=== PATIENT | female | born 1945 | race Caucasian/White ===

== ENCOUNTER → 2017-05-15 | Outpatient (CLI) | payer MEDICARE ==
[~2017-05-15] MED LIST: ASPI1TAB PO; ATOR80TA59 PO; CALCCHW8 PO; FOSA70TA PO; LISI20TA3 PO; STOO100C PO; SYNT50TA PO; VITA100067 PO
--- NOTE | 2017-05-16 09:56 | REP ---
THORACIC SPINE THREE VIEWS: 05/15/2017. Clinical history: Thoracic spine pain for 3 weeks, lower thoracic region. Comparison: Chest x-ray 12/04/2006. Findings: The three views show very gentle levoconvex curve mid-thoracic spine which may be positional, but is also seen on the previous study. There are marginal osteophytes at multiple levels. The pedicles, spinous processes, posterior rib articulations and medial clavicles were all grossly intact. Paraspinal lines are not displaced. The aorta is mildly tortuous but unchanged from 10 years ago. Cervicothoracic junction aligns normally. There is cervical spondylosis in the mid and lower cervical spine. There are marginal osteophytes which are largest in the lower thoracic spine and a few narrowed disc spaces mid and lower thoracic region but no compression deformity or destructive lesion. Impression: 1. Degenerative disc changes without compression deformity or destructive lesion. No scoliosis or kyphosis of significance. Signed by Sander Worrell MD 05/16/2017 05:54 P
== END ==
LOC: M WUC 15:08
PROVIDERS: ATTEND Physician Assistant
DX: M51.36 Other intervertebral disc degeneration, lumbar region (principal)

== ENCOUNTER 2017-07-19 08:10 | Outpatient (CLI) | payer MEDICARE ==
[~2017-07-19] VITALS: Ht 162.6 cm; Wt 81.6 kg
[2017-07-19] MEDS ORDERED: NS 1,000 ML IV ONE (08:15)
[2017-07-19] MEDS ORDERED: PROPOFOL 200 MG/20 ML VIAL As Ordered ONE (08:41)
[2017-07-19] MEDS ORDERED: LIDOCAINE 2% INJ 100 MG/5 ML SDV (FOR ANES.) As Ordered ONE (09:24)
--- NOTE | 2017-07-19 09:48 | ROOR ---
Patient Name: Dyan Santos Procedure Date: 07/19/2017 9:19 AM Date of : 1945 Age: 72 Room: [facility] Gender: Female Note Status: Finalized Procedure: Total Colonoscopy to Cecum + Cold Snare Polypectomy + Hemoclip Indications: Screening for colorectal malignant neoplasm, Last colonoscopy: 2006 Providers: Dean Arias MD Referring MD: Dunia AKBAR MD Requesting Provider: Medicines: Monitored Anesthesia Care Complications: No immediate complications. Procedure: Pre-Anesthesia Assessment: - The heart rate, respiratory rate, oxygen saturations, blood pressure, adequacy of pulmonary ventilation, and response to care were monitored throughout the procedure. The Colonoscope was introduced through the anus and advanced to the cecum, identified by appendiceal orifice and ileocecal valve. The colonoscopy was performed without difficulty. The patient tolerated the procedure well. The quality of the bowel preparation was excellent. Findings: The perianal and digital rectal examinations were normal. Non-bleeding internal hemorrhoids were found during retroflexion. The hemorrhoids were small and Grade I (internal hemorrhoids that do not prolapse). Scattered small-mouthed diverticula were found in the recto-sigmoid colon, sigmoid colon and descending colon. Multiple sessile polyps were found in the mid ascending colon. The polyps were small in size. These polyps were removed with a jumbo cold forceps. Resection and retrieval were complete. A small polyp was found at 20 cm proximal to the anus. The polyp was sessile. The polyp was removed with a cold snare. Resection and retrieval were complete. To prevent bleeding after the polypectomy, one hemostatic clip was successfully placed (MR conditional). There was no bleeding at the end of the procedure. The exam was otherwise without abnormality on direct and retroflexion views. Impression: - Non-bleeding internal hemorrhoids. - Diverticulosis in the recto-sigmoid colon, in the sigmoid colon and in the descending colon. - Multiple small polyps in the mid ascending colon, removed with a jumbo cold forceps. Resected and retrieved. - One small polyp at 20 cm proximal to the anus, removed with a cold snare. Resected and retrieved. Clip (MR conditional) was placed. - The examination was otherwise normal on direct and retroflexion views. - The exam was otherwise normal to the cecum. Recommendation: - Patient has a contact number available for emergencies. The signs and symptoms of potential delayed complications were discussed with the patient. Return to normal activities tomorrow. Written discharge instructions were provided to the patient. - High fiber diet. - Discharge patient to home. - Continue present medications. - Await pathology results. - Telephone GI clinic for pathology results in 1 week. - Repeat colonoscopy PRN for surveillance based on pathology results. - The findings and recommendations were discussed with the patient's family. Dean Arias MD Dean Arias MD 07/19/2017 9:48:10 AM This report has been signed electronically. Number of Addenda: 0 Note Initiated On: 07/19/2017 9:19 AM Estimated Blood Loss: Estimated blood loss: none.
[2017-07-19 10:15] VITALS: BP 140/78
== END 2017-07-19 10:17 | disposition home or self-care (01) ==
LOC: M OPP 08:10
PROVIDERS: ATTEND Internal Medicine Gastroenterology
DX: Z12.11 Encounter for screening for malignant neoplasm of colon (principal); D12.2 Benign neoplasm of ascending colon; K63.5 Polyp of colon; K64.0 First degree hemorrhoids; K57.30 Diverticulosis of large intestine without perforation or abscess without bleeding; I25.10 Atherosclerotic heart disease of native coronary artery without angina pectoris; I10 Essential (primary) hypertension; E78.5 Hyperlipidemia, unspecified; Z95.5 Presence of coronary angioplasty implant and graft; E11.9 Type 2 diabetes mellitus without complications; E03.9 Hypothyroidism, unspecified; M81.0 Age-related osteoporosis without current pathological fracture; Z78.0 Asymptomatic menopausal state; Z87.891 Personal history of nicotine dependence; Z88.0 Allergy status to penicillin; Z88.2 Allergy status to sulfonamides; Z79.82 Long term (current) use of aspirin; Z79.899 Other long term (current) drug therapy; Z80.3 Family history of malignant neoplasm of breast; Z80.42 Family history of malignant neoplasm of prostate; Z80.41 Family history of malignant neoplasm of ovary; Z80.1 Family history of malignant neoplasm of trachea, bronchus and lung

== ENCOUNTER → 2017-11-05 | Outpatient (REF) | payer MEDICARE ==
[2017-11-05 13:29] LABS: RBC, URINE 0-1 /hpf (0-3); WBC, URINE 30-40 /hpf (0-3)
[2017-11-05 13:30] LABS: BACTERIA, URINE SMALL AMOUNT; HYALINE CAST, URINE NONE SEEN /lpf (0-1); RENAL EPITHELIAL CELLS, URINE SMALL AMOUNT /hpf; SQUAMOUS EPITHELIAL CELL URINE SMALL AMOUNT /hpf (SMALL AMT)
[2017-11-05 13:34] LABS: MICROSCOPIC EXAM PERFORMED; OVAL FAT BODIES, URINE SMALL AMOUNT
== END ==
LOC: M LAB REF 12:00
DX: N39.0 Urinary tract infection, site not specified (principal)
CPT/HCPCS: 81015

== ENCOUNTER → 2017-11-25 | Outpatient (REF) | payer MEDICARE | LOC: M LAB REF 16:35 | DX: R30.0 Dysuria (principal) | CPT/HCPCS: 87186 ==

== ENCOUNTER → 2018-05-17 | Outpatient (CLI) | payer MEDICARE | LOC: M WUC 08:50 | DX: M79.672 Pain in left foot (principal); N39.0 Urinary tract infection, site not specified | CPT/HCPCS: 87186 ==

== ENCOUNTER → 2018-08-08 | Outpatient (REF) | payer MEDICARE | LOC: M LAB REF 17:04 | DX: N39.0 Urinary tract infection, site not specified (principal) | CPT/HCPCS: 87088; 87186 ==

== ENCOUNTER 2019-03-26 21:48 | Emergency (ER) | payer MEDICARE ==
[~2019-03-26] VITALS: Ht 160 cm; Wt 81.8 kg
[~2019-03-26 21:48] MED LIST changes: -ASPI1TAB PO; +ASPI81TA26 PO
[2019-03-26 22:25] LABS: BASO % 0.5 % (0.0-1.0); EOS # 0.2 10^3/uL (0.0-0.50); EOS % 2.6 % (0.0-3.0); HEMATOCRIT 37.9 % (36.0-47.0); HEMOGLOBIN 12.7 g/dl (12.0-15.5); LYMPH # 2.6 10^3/uL (1.5-4.5); LYMPH % 29.9 % (24.0-44.0); MEAN CORPUSCULAR HEMOGLOBIN 31.5 pg (27.0-33.0); MEAN CORPUSCULAR HGB CONC 33.5 g/dl (32.0-36.5); MONO # 0.8 10^3/uL (0.0-0.8); MONO % 9.6 % (0.0-5.0); NEUTROPHILS % 56.9 % (36.0-66.0); PLATELET COUNT, AUTOMATED 272 10^3/uL (150-450); RED BLOOD COUNT 4.03 10^6/uL (4.00-5.40); WHITE BLOOD COUNT 8.7 10^3/uL (4.0-10.0)
[2019-03-26] MEDS ORDERED: GI COCKTAIL 50ML BTL(HYOSCYAMINE/MAALOX/LIDOCAINE VISCOUS)(1:3:1) PO ONE (22:30)
[2019-03-26] MEDS ORDERED: ASPIRIN 81 MG CHEW TABLET PO ONE (22:30)
[2019-03-26 22:59] LABS: CALCIUM LEVEL 9.1 MG/DL (8.8-10.2); CK-MB VALUE MASS 1.4 NG/ML (<3.6); CREATININE FOR GFR 1.11 MG/DL (0.55-1.30); FREE T4 1.12 NG/DL (0.76-1.46); GLOMERULAR FILTRATION RATE 51.3 (>39); MB/CK RELATIVE INDEX 1.43 (< OR =4); POTASSIUM SERUM 3.6 MEQ/L (3.5-5.1); THYROID STIMULATING HORMONE 4.72 uIU/ML (0.358-3.740); TROPONIN I 0.05 NG/ML (< 0.10)
[2019-03-27 01:43] VITALS: BP 142/70
--- NOTE | 2019-03-27 05:53 | ECGEPIP ---
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
--- NOTE | 2019-03-27 07:36 | REP ---
The portable chest, 10:31 p.m., single AP upright view: Comparison is 12/04/2006. The lung hugo are clear. The cardiac size is normal. The kellen, mediastinum, and skeletal structures are unremarkable. Impression: Negative portable chest. There is no interval change. Electronically Signed by Anuj Stahl MD 03/27/2019 07:28 A
== END 2019-03-27 02:04 | disposition home or self-care (01) ==
LOC: M ED 21:48
DX: K21.9 Gastro-esophageal reflux disease without esophagitis (principal); I25.10 Atherosclerotic heart disease of native coronary artery without angina pectoris; I10 Essential (primary) hypertension; Z87.891 Personal history of nicotine dependence; Z82.49 Family history of ischemic heart disease and other diseases of the circulatory system; Z79.82 Long term (current) use of aspirin; Z79.899 Other long term (current) drug therapy; Z88.0 Allergy status to penicillin; Z88.2 Allergy status to sulfonamides

== ENCOUNTER → 2020-03-20 | Outpatient (CLI) | payer MEDICARE ==
[~2020-03-20] MED LIST changes: +LISI20TA20 PO; -LISI20TA3 PO; +MM S100C PO; -STOO100C PO
== END ==
LOC: M LABSMTC 12:26
PROVIDERS: ATTEND Pediatrics
DX: Z03.818 Encounter for observation for suspected exposure to other biological agents ruled out (principal); Z11.59 Encounter for screening for other viral diseases

== ENCOUNTER → 2020-06-28 | Outpatient (REF) | payer MEDICARE | LOC: M LAB REF 12:20 | PROVIDERS: ATTEND Internal Medicine | DX: R30.0 Dysuria (principal) ==

== ENCOUNTER → 2020-08-29 | Outpatient (CLI) | payer SELFPAY | LOC: M LABSMTC 11:43 | PROVIDERS: ATTEND Pediatrics | DX: Z20.828 Contact with and (suspected) exposure to other viral communicable diseases (principal) ==

== ENCOUNTER → 2020-09-10 | Outpatient (REF) | payer MEDICARE | LOC: M LAB REF 09:07 | PROVIDERS: ATTEND Internal Medicine | DX: N39.0 Urinary tract infection, site not specified (principal) ==

== ENCOUNTER → 2020-11-18 | Outpatient (REF) | payer MEDICARE | LOC: M LAB REF 16:32 | PROVIDERS: ATTEND Internal Medicine | DX: Z91.19 Patient's noncompliance with other medical treatment and regimen (principal) ==

== ENCOUNTER → 2021-01-13 | Outpatient (REF) | payer MEDICARE | LOC: M LAB REF 16:34 | PROVIDERS: ATTEND Internal Medicine | DX: N39.0 Urinary tract infection, site not specified (principal) ==

== ENCOUNTER 2021-10-07 04:27 | Inpatient (IN) | payer MEDICARE ==
[~2021-10-07] VITALS: Ht 165.1 cm; Wt 82.9 kg
[2021-10-07 05:37] LABS: BASO % 0.2 % (0.0-1.0); EOS % 0.1 % (0.0-3.0); HEMATOCRIT 40.8 % (36.0-47.0); HEMOGLOBIN 13.5 g/dl (12.0-15.5); LYMPH % 7.7 % (24.0-44.0); MEAN CORPUSCULAR HEMOGLOBIN 30.4 pg (27.0-33.0); MEAN CORPUSCULAR HGB CONC 33.1 g/dl (32.0-36.5); MEAN CORPUSCULAR VOLUME 91.9 fl (80.0-96.0); MONO # 0.6 10^3/uL (0.0-0.8); MONO % 4.6 % (2.0-8.0); NEUTROPHILS # 11.2 10^3/uL (1.5-8.5); PLATELET COUNT, AUTOMATED 273 10^3/uL (150-450); RED BLOOD COUNT 4.44 10^6/uL (4.00-5.40); WHITE BLOOD COUNT 12.9 10^3/uL (4.0-10.0)
[2021-10-07] MEDS ORDERED: MORPHINE 2 MG/ML 1ML VIAL (J2270) IV PRN ×2 (05:40→08:55)
[2021-10-07] MEDS ORDERED: ONDANSETRON 4MG/2ML VIAL IV ONE (05:40)
[2021-10-07 06:02] LABS: INR 0.99; PROTHROMBIN TIME 13.5 SECONDS (12.7-14.5)
[2021-10-07 06:07] LABS: ALBUMIN 3.6 GM/DL (3.2-5.2); ALT/SGPT 31 U/L (12-78); BILIRUBIN,DIRECT 0.2 MG/DL (0.0-0.2); BILIRUBIN,TOTAL 0.5 MG/DL (0.2-1.0); BLOOD UREA NITROGEN 21 MG/DL (7-18); CALCIUM LEVEL 9.3 MG/DL (8.8-10.2); CARBON DIOXIDE LEVEL 26 MEQ/L (21-32); CHLORIDE LEVEL 104 MEQ/L (98-107); CREATININE FOR GFR 0.88 MG/DL (0.55-1.30); GLOMERULAR FILTRATION RATE > 60.0 (>39); GLUCOSE, FASTING 167 MG/DL (70-100); LIPASE 92 U/L (73-393); POTASSIUM SERUM 4.1 MEQ/L (3.5-5.1); SODIUM LEVEL 137 MEQ/L (136-145); TOTAL PROTEIN 6.6 GM/DL (6.4-8.2)
[2021-10-07] MEDS ORDERED: ISOVUE-370 76% 100ML VIAL As Ordered ONE (06:18)
[2021-10-07 07:06] LABS: RSV AMPLIFICATION NEGATIVE (NEGATIVE)
--- NOTE | 2021-10-07 07:30 | REPVR ---
PROCEDURE INFORMATION: Exam: CT Abdomen And Pelvis With Contrast Exam date and time: 10/07/2021 6:06 AM Age: 76 years old Clinical indication: Other: Diarrhea; Additional info: Generalized abd pain, diarrhea, hematachezia TECHNIQUE: Imaging protocol: Computed tomography of the abdomen and pelvis with contrast. Radiation optimization: All CT scans at this facility use at least one of these dose optimization techniques: automated exposure control; mA and/or kV adjustment per patient size (includes targeted exams where dose is matched to clinical indication); or iterative reconstruction. Contrast material: ISO; Contrast volume: 100 ml; Contrast route: INTRAVENOUS (IV); COMPARISON: CR PORTABLE CHEST X-RAY 03/26/2019 10:30 PM FINDINGS: Lungs: Bilateral dependent atelectasis. Heart: Atherosclerotic disease of the coronary arteries. Diaphragm: Small hiatal hernia. Liver: Normal. No mass. Gallbladder and bile ducts: Normal. No calcified stones. No ductal dilation. Pancreas: Normal. No ductal dilation. Spleen: Normal. No splenomegaly. Adrenal glands: Normal. No mass. Kidneys and ureters: Simple exophytic right renal cyst. Stomach and bowel: Marked inflammatory changes involving descending colon compatible with colitis. Scattered diverticulosis of the colon. No evidence of acute diverticulitis. Appendix: No evidence of appendicitis. Intraperitoneal space: Unremarkable. No free air. No significant fluid collection. Vasculature: Atherosclerotic disease of the thoracoabdominal aorta. Lymph nodes: Unremarkable. No enlarged lymph nodes. Urinary bladder: Unremarkable as visualized. Reproductive: Unremarkable as visualized. Bones/joints: Anterolisthesis of L4 on L5 secondary to bilateral L4 pars interarticularis defects. Severe stenosis of the spinal canal and neural foramina at this level. Multilevel degenerative disease. Mild levoscoliosis. Soft tissues: Unremarkable. IMPRESSION: Marked inflammatory changes involving descending colon compatible with colitis. COMMENTS: Consistent with the [employer]'s Incidental Findings Committee white paper (J Am Orlando Radiol 2018): Any incidental renal lesion less than 1 cm or classified as too small to characterize, or any incidental cystic renal lesion characterized as simple-appearing, is likely benign. No follow-up imaging is recommended for these lesions per consensus recommendations based on imaging criteria. Electronically signed by: Chester Robertson On 10/07/2021 07:29:37 AM
[2021-10-07] MEDS ORDERED: FOSA70TA PO (08:15)
[2021-10-07] MEDS ORDERED: ECOT81TA5 PO (08:19)
[2021-10-07] MEDS ORDERED: LISI40TA4 PO (08:19)
[2021-10-07] MEDS ORDERED: CHLO125TA PO (08:19)
[2021-10-07] MEDS ORDERED: LEVO50TA5 PO (08:19)
[2021-10-07] MEDS ORDERED: LORA10TA3 PO (08:20)
[2021-10-07] MEDS ORDERED: HOME MED LIST COMPLETE! XX SCH (08:20)
[2021-10-07] MEDS ORDERED: ONDANSETRON 4MG/2ML VIAL IV PRN (08:55)
[2021-10-07] MEDS: CIPROFLOXACIN 400 MG in IV 1 EA IV SCH ×2 (09:25→21:49)
[2021-10-07] MEDS: NS 1,000 ML IV SCH ×2 (09:25→17:09)
[2021-10-07] MEDS ORDERED: amLODIPine 5 MG TAB PO ONE (11:20)
[2021-10-07 11:34] VITALS: BP 186/86
[2021-10-07] MEDS: metroNIDAZOLE 500 MG in IV 1 EA IV SCH ×2 (11:35→17:09)
--- NOTE | 2021-10-07 11:35 | HPEPDOC ---
General Date of Admission Oct 07, 2021 at 08:53 Date of Service: Oct 07, 2021 Chief Complaint The patient is a 76-year-old female admitted with a reason for visit of Colitis. History of Present Illness 76-year-old female with CAD, hypertension, hyperlipidemia, hypothyroid diverticulosis, hemorrhoids presented to the hospital with the abdominal pain and bloody diarrhea. Patient reports that last evening she had severe crampy abdominal pain 10/10 in intensity in the periumbilical and lower abdomen associated with nausea followed by 2 very large loose bowel movements. The stools were initially solid then brown liquid. After this she had several more urges to have a bowel movement but only blood with clots came out. There was minimal stool in the subsequent bowel movements. She reports that she had another bout of diarrhea on October 04 when she had 4-5 [id number] large liquid bowel movements and then resolved. Patient tells me that she has noticed a change in her bowel habits in the last 3 to 4 months. Her usual bowel habits are more constipation but over the past 3 or 4 months she has noticed that she would have constipation for few days and then she would have a day of diarrhea when she would have for 5 loose bowel movements and then resolved by itself then she would go back to constipation for several days and again diarrhea. She reports that she had a colonoscopy 4 years back and was told everything was good. During my exam she complained of soreness across the lower abdomen and rated it about 4/10 in intensity. She did get morphine in the emergency room. CT scan in the emergency room showed Marked inflammatory changes involving descending colon compatible with colitis. Scattered diverticulosis of the colon. No evidence of acute diverticulitis. She was admitted for acute colitis and GIB. Home Medications Scheduled Alendronate Sodium (Fosamax) 70 Mg Tablet, 70 MG PO QWEEK, (Reported) takes sundays Aspirin (Ecotrin) 81 Mg Tablet.dr, 81 MG PO QHS, (Reported) Atorvastatin Calcium (Atorvastatin Calcium) 80 Mg Tab, 80 MG PO QHS, (Reported) Chlorthalidone (Chlorthalidone) 25 Mg Tablet, 12.5 MG PO DAILY, (Reported) Levothyroxine Sodium (Levothyroxine Sodium) 50 Mcg Tablet, 50 MCG PO QHS, (Reported) Lisinopril (Lisinopril) 40 Mg Tablet, 40 MG PO QHS, (Reported) Loratadine (Loratadine) 10 Mg Tablet, 10 MG PO DAILY, (Reported) Allergies Coded Allergies: amoxicillin (Verified Allergy, Mild, HIVES, 10/07/21) Sulfa (Sulfonamide Antibiotics) (Verified Allergy, Unknown, 10/07/21) Past Medical History Medical History CAD s/p 8 stents in 2006 Hypertension, Hyperlipidemia, Hypothyroid, Diverticulosis, Hemorrhoids Surgical History Surgery for tubal in 1970s Family History Significant Family History: Cancer (Brother had prostate cancer, 2 sisters had breast cancer, one sister had mesothelioma, 1 sister had ovarian cancer), Heart disease (Mother and siblings) Social History * Smoker: former Smoker Alcohol: rarely Drugs: denies A-FIB/CHADSVASC A-FIB History Current/History of A-Fib/PAF?: No Review of Systems Constitutional: Denies: Chills, Fever, Night Sweats Eyes: Denies: Pain, Vision change ENT: Denies: Head Aches, Ear Pain, Dysphagia Skin: Denies: Rash, Lesions, Breakdown Pulmonary: Denies: Dyspnea, Cough Cardiovascular: Denies: Chest Pain, Palpitations, Orthopnea, Paroxysmal Noc. Dyspnea, Lt Headedness Gastrointestinal: Reports: Nausea, Abdominal Pain, Diarrhea, Hematochezia Genitourinary: Denies: Dysuria, Frequency, Incontinence, Retention Hematologic: Denies: Bruising, Bleeding Excessively Musculoskeletal: Denies: Neck Pain, Joint Pain, Muscle Pain, Spasms Physical Examination General Exam: Positive: Alert, Cooperative, No Acute Distress Eye Exam: Positive: PERRLA, Conjunctiva & lids normal, EOMI; Negative: Sclera icteric ENT Exam: Positive: Atraumatic, Mucous membr. moist/pink, Pharynx Normal Neck Exam: Positive: Supple; Negative: JVD, thyromegaly Chest Exam: Positive: Clear to auscultation, Normal air movement Heart Exam: Positive: Rate Normal, Regular Rhythm, Normal S1, Normal S2; Negative: Murmurs, Rubs Abdomen Exam: Positive: BS Hyperactive, Soft, Tenderness (Across the right lower abdomen below the umbilicus and suprapubic region.); Negative: Hepatospenomegaly Extremity Exam: Negative: Clubbing, Cyanosis, Edema Skin Exam: Positive: Nl turgor and temperature; Negative: Breakdown, Lesion Neuro Exam: Positive: Normal Speech, Strength at 5/5 X4 ext, Normal Tone Psych Exam: Positive: Memory Intact, Oriented x 3 Vital Signs Vital Signs Date Time Temp Pulse Resp B/P (MAP) Pulse Ox O2 Delivery O2 Flow Rate FiO2 10/07/21 08:09 173/77 (109) 10/07/21 08:00 98.6 75 20 100 Room Air Laboratory Data Labs 24H Laboratory Tests 2 10/07/21 05:27: Immature Granulocyte % (Auto) 0.4, Neutrophils (%) (Auto) 87.0H, Lymphocytes (%) (Auto) 7.7L, Monocytes (%) (Auto) 4.6, Eosinophils (%) (Auto) 0.1, Basophils (%) (Auto) 0.2, Neutrophils # (Auto) 11.2H, Lymphocytes # (Auto) 1.0L, Monocytes # (Auto) 0.6, Eosinophils # (Auto) 0.0, Basophils # (Auto) 0.0, Nucleated Red Blood Cells % (auto) 0.0, Prothrombin Time 13.5, Prothromb Time International Ratio 0.99, Activated Partial Thromboplast Time 29.0, Anion Gap 7L, Glomerular Filtration Rate > 60.0, Lactic Acid Level 1.9, Calcium Level 9.3, Total Bilirubin 0.5, Direct Bilirubin 0.2, Aspartate Amino Transf (AST/SGOT) 22, Alanine Aminotransferase (ALT/SGPT) 31, Alkaline Phosphatase 59, Total Protein 6.6, Albumin 3.6, Albumin/Globulin Ratio 1.2, Lipase 92 10/07/21 06:08: Coronavirus (COVID-19)(PCR) NEGATIVE, Influenza Type A (RT-PCR) NEGATIVE, Influenza Type B (RT-PCR) NEGATIVE, Respiratory Syncytial Virus (PCR) NEGATIVE CBC/BMP Laboratory Tests 10/07/21 05:27 Assessment/Plan 76-year-old female with CAD, hypertension, hyperlipidemia,hypothyroid diverticulosis, hemorrhoid presented to the hospital with the severe cramp abdominal pain and bloody diarrhea. She also reported change in bowel habits in the last 3 months with alternate episodes of constipation and diarrhea but never with blood before. She did notice blood in toilet paper after wiping before from her hemorroids but never pure blood and clots in the toilet bowl. CT scan in the emergency room showed Marked inflammatory changes involving descending colon compatible with colitis. Scattered diverticulosis of the colon. No evidence of acute diverticulitis. She was admitted for acute colitis and GIB. Acute colitis Infective vs inflammatory We will give IV fluid, ciprofloxacin and Flagyl. If continues to have diarrhea will send for GI panel Rule out inflammatory bowel disease. Will send IBD panel. Liquid diet for now GIB Bright red in color. likely lower GIB possibly due to Colitis + diverticular bleed. Patient has diverticulosis and hemorrhoids seen in colonoscopy [address] scan today along with colitis. will check hh q 6 hours. will give pantoprazole. Hypertension Patient reports that she could not take her blood pressure medications last night because of nausea so her blood pressure is uncontrolled this morning We will give 1 dose of amlodipine and resume her home meds except hydrochlorothiazide CAD status post stents Continue aspirin, statin Hypothyroid Continue Synthroid Hyperlipidemia Continue statin Lumbar spinal stenosis severe at the level of L4-L5 with bilateral foraminal stenosis This is seen in the CT scan. Small hiatal hernia Seen in the CT scan Plan / VTE VTE Prophylaxis Ordered?: Yes Nathaly Cho MD Oct 07, 2021 11:35
[2021-10-07 13:47] VITALS: BP 160/72
[2021-10-07] MEDS ORDERED: KETOROLAC 30 MG/ML 1ML VIAL IV PRN (16:50)
[2021-10-07] MEDS ORDERED: ACETAMINOPHEN TAB 650MG DOSE (2X325MG) PO PRN (16:50)
[2021-10-07 17:34] LABS: HEMOGLOBIN 13.2 g/dl (12.0-15.5)
[2021-10-07] MEDS: lisinopriL 40 MG TAB PO SCH (21:00)
[2021-10-07] MEDS: PANTOPRAZOLE 40MG VIAL (C9113 PER 1) IV SCH (21:49)
[2021-10-07] MEDS: ASPIRIN 81MG ENTERIC TABLET PO SCH (21:49)
[2021-10-07] MEDS: ATORVASTATIN 20 MG TAB PO SCH (21:49)
[2021-10-07] MEDS: LEVOTHYROXINE 50MCG TABLET (0.05MG) PO SCH (21:49)
[2021-10-07 22:00] VITALS: BP 143/70
[2021-10-07 22:59] LABS: HEMATOCRIT 33.4 % (36.0-47.0)
[2021-10-07 23:00] LABS: HEMOGLOBIN 11.1 g/dl (12.0-15.5)
[2021-10-08] MEDS: metroNIDAZOLE 500 MG in IV 1 EA IV SCH ×3 (02:43→17:58)
[2021-10-08 05:21] LABS: BASO % 0.3 % (0.0-1.0); EOS # 0.2 10^3/uL (0.0-0.5); HEMOGLOBIN 11.6 g/dl (12.0-15.5); LYMPH # 1.4 10^3/uL (1.5-5.0); LYMPH % 14.4 % (24.0-44.0); MEAN CORPUSCULAR HEMOGLOBIN 30.8 pg (27.0-33.0); MEAN CORPUSCULAR HGB CONC 33.1 g/dl (32.0-36.5); MEAN CORPUSCULAR VOLUME 92.8 fl (80.0-96.0); MONO # 0.8 10^3/uL (0.0-0.8); NEUTROPHILS # 7.4 10^3/uL (1.5-8.5); NEUTROPHILS % 74.9 % (36.0-66.0); PLATELET COUNT, AUTOMATED 213 10^3/uL (150-450); RED BLOOD COUNT 3.77 10^6/uL (4.00-5.40); WHITE BLOOD COUNT 9.9 10^3/uL (4.0-10.0)
[2021-10-08 05:46] LABS: BLOOD UREA NITROGEN 10 MG/DL (7-18); CALCIUM LEVEL 8.6 MG/DL (8.8-10.2); CARBON DIOXIDE LEVEL 28 MEQ/L (21-32); CHLORIDE LEVEL 106 MEQ/L (98-107); GLOMERULAR FILTRATION RATE > 60.0 (>39); GLUCOSE, FASTING 148 MG/DL (70-100); POTASSIUM SERUM 3.6 MEQ/L (3.5-5.1); SODIUM LEVEL 139 MEQ/L (136-145)
[2021-10-08 06:00] VITALS: BP 124/55
--- NOTE | 2021-10-08 10:03 | IPNPDOC ---
Subjective Date Seen The patient was seen on 10/08/21. Subjective Chief Complaint/HPI Feels a little better today. Did not have severe abdominal pain after admission. She does still have soreness in the left side of the abdomen. She did not have any more rectal bleeding since yesterday afternoon. Does not have any appetite yet. Objective Physical Examination General Exam: Positive: Alert, Cooperative, No Acute Distress Eye Exam: Positive: PERRLA, Conjunctiva & lids normal, EOMI; Negative: Sclera icteric ENT Exam: Positive: Atraumatic, Mucous membr. moist/pink, Pharynx Normal Neck Exam: Positive: Supple; Negative: JVD, thyromegaly Chest Exam: Positive: Clear to auscultation, Normal air movement Heart Exam: Positive: Rate Normal, Regular Rhythm, Normal S1, Normal S2; Negative: Murmurs, Rubs Abdomen Exam: Positive: Normal bowel sounds, Soft, Tenderness (On the left side of the abdomen extending from the left iliac fossa lumbar to the left upper abdomen.); Negative: Hepatospenomegaly Extremity Exam: Negative: Clubbing, Cyanosis, Edema Skin Exam: Positive: Nl turgor and temperature; Negative: Breakdown, Lesion Neuro Exam: Positive: Normal Speech, Strength at 5/5 X4 ext, Normal Tone Psych Exam: Positive: Memory Intact, Oriented x 3 Assessment /Plan Assessment 76-year-old female with CAD, hypertension, hyperlipidemia,hypothyroid diverticulosis, hemorrhoid presented to the hospital with the severe cramp abdominal pain and bloody diarrhea. She also reported change in bowel habits in the last 3 months with alternate episodes of constipation and diarrhea but never with blood before. She did notice blood in toilet paper after wiping before from her hemorroids but never pure blood and clots in the toilet bowl. CT scan in the emergency room showed Marked inflammatory changes involving descending colon compatible with colitis. Scattered diverticulosis of the colon. No evidence of acute diverticulitis. She was admitted for acute colitis and GIB. Acute colitis Infective vs inflammatory On ciprofloxacin and Flagyl. Rule out inflammatory bowel disease. Will send IBD panel. Will advance diet to low residue diet Patient will need outpatient colonoscopy due to recent change in bowel habits a nd now with bloody diarrhea to evaluate for inflammatory bowel disease. GIB Bright red in color. likely lower GIB possibly due to Colitis + diverticular bleed. Patient has diverticulosis and hemorrhoids seen in colonoscopy [address] scan today along with colitis. H&H has been stable Continue PPI Hypertension Continue home meds except hydrochlorothiazide CAD status post stents Continue aspirin, statin Hypothyroid Continue Synthroid Hyperlipidemia Continue statin Lumbar spinal stenosis severe at the level of L4-L5 with bilateral foraminal stenosis This is seen in the CT scan. Small hiatal hernia Seen in the CT scan PPI Plan/VTE VTE Prophylaxis Ordered?: Yes VS, I&O, 24H, Fishbone Vital Signs/I&O Vital Signs Date Time Temp Pulse Resp B/P (MAP) Pulse Ox O2 Delivery O2 Flow Rate FiO2 10/08/21 06:00 98.6 62 16 124/55 (78) 95 Room Air I&O- Last 24 Hours up to 6 AM 10/08/21 06:00 Intake Total 2735 ml Output Total 1400 ml Balance 1335 ml Laboratory Data 24H LABS Laboratory Tests 2 10/07/21 16:55: 10/08/21 05:00: Immature Granulocyte % (Auto) 0.4, Neutrophils (%) (Auto) 74.9H, Lymphocytes (%) (Auto) 14.4L, Monocytes (%) (Auto) 8.0, Eosinophils (%) (Auto) 2.0, Basophils (%) (Auto) 0.3, Neutrophils # (Auto) 7.4, Lymphocytes # (Auto) 1.4L, Monocytes # (Auto) 0.8, Eosinophils # (Auto) 0.2, Basophils # (Auto) 0.0, Nucleated Red Blood Cells % (auto) 0.0, Anion Gap 5L, Glomerular Filtration Rate > 60.0, Calcium Level 8.6L CBC/BMP Laboratory Tests 10/07/21 16:55 10/07/21 22:49 10/08/21 05:00 Nathaly Cho MD Oct 08, 2021 10:03
[2021-10-08] MEDS: PANTOPRAZOLE 40MG VIAL (C9113 PER 1) IV SCH ×2 (10:10→21:17)
[2021-10-08] MEDS: CIPROFLOXACIN 400 MG in IV 1 EA IV SCH ×2 (10:10→21:17)
[2021-10-08 11:23] LABS: HEMATOCRIT 36.8 % (36.0-47.0); HEMOGLOBIN 12.3 g/dl (12.0-15.5)
[2021-10-08 14:00] VITALS: BP 173/72
[2021-10-08 16:57] VITALS: BP 130/74
[2021-10-08 17:16] LABS: HEMOGLOBIN 11.1 g/dl (12.0-15.5)
[2021-10-08] MEDS: ASPIRIN 81MG ENTERIC TABLET PO SCH (21:18)
[2021-10-08] MEDS: ATORVASTATIN 20 MG TAB PO SCH (21:18)
[2021-10-08] MEDS: LEVOTHYROXINE 50MCG TABLET (0.05MG) PO SCH (21:19)
[2021-10-08] MEDS: lisinopriL 40 MG TAB PO SCH (21:35)
[2021-10-08 22:00] VITALS: BP 103/74
[2021-10-08 22:51] LABS: HEMATOCRIT 32.9 % (36.0-47.0); HEMOGLOBIN 10.9 g/dl (12.0-15.5)
[2021-10-09] MEDS: metroNIDAZOLE 500 MG in IV 1 EA IV SCH ×2 (02:14→11:21)
[2021-10-09 06:00] VITALS: BP 131/62
[2021-10-09 06:37] LABS: BASO % 0.4 % (0.0-1.0); EOS # 0.4 10^3/uL (0.0-0.5); EOS % 5.2 % (0.0-3.0); HEMATOCRIT 32.4 % (36.0-47.0); HEMOGLOBIN 10.8 g/dl (12.0-15.5); LYMPH % 24.8 % (24.0-44.0); MEAN CORPUSCULAR HEMOGLOBIN 30.9 pg (27.0-33.0); MEAN CORPUSCULAR HGB CONC 33.3 g/dl (32.0-36.5); MEAN CORPUSCULAR VOLUME 92.8 fl (80.0-96.0); MONO # 0.8 10^3/uL (0.0-0.8); MONO % 9.2 % (2.0-8.0); NEUTROPHILS # 4.9 10^3/uL (1.5-8.5); PLATELET COUNT, AUTOMATED 204 10^3/uL (150-450); RED BLOOD COUNT 3.49 10^6/uL (4.00-5.40); WHITE BLOOD COUNT 8.1 10^3/uL (4.0-10.0)
[2021-10-09 07:04] LABS: BLOOD UREA NITROGEN 13 MG/DL (7-18); CALCIUM LEVEL 8.5 MG/DL (8.8-10.2); CARBON DIOXIDE LEVEL 28 MEQ/L (21-32); CHLORIDE LEVEL 109 MEQ/L (98-107); CREATININE FOR GFR 0.88 MG/DL (0.55-1.30); GLOMERULAR FILTRATION RATE > 60.0 (>39); GLUCOSE, FASTING 137 MG/DL (70-100); POTASSIUM SERUM 3.7 MEQ/L (3.5-5.1); SODIUM LEVEL 143 MEQ/L (136-145)
[2021-10-09] MEDS: PANTOPRAZOLE 40MG VIAL (C9113 PER 1) IV SCH (09:30)
[2021-10-09] MEDS: CIPROFLOXACIN 400 MG in IV 1 EA IV SCH (09:30)
[2021-10-09] MEDS ORDERED: CIPR-249 PO (09:43)
[2021-10-09] MEDS ORDERED: PROB1TAB2 PO (09:43)
[2021-10-09] MEDS ORDERED: METR-265 PO (09:43)
--- NOTE | 2021-10-09 09:52 | DS.PDOC ---
Discharge Summary General Date of Admission Oct 07, 2021 at 08:53 Date of Discharge 10/09/21 Discharge Summary PROCEDURES PERFORMED DURING STAY: [None]. DISCHARGE DIAGNOSES: Lower GI bleed Diverticulosis Acute colitis infectious versus inflammatory Rule out inflammatory bowel disease Hemorrhoids Secondary diagnoses CAD status post stents, hypertension, hyperlipidemia,hypothyroid, hiatal hernia, severe lumbar spinal stenosis at L4-L5 level with bilateral foraminal stenosis COMPLICATIONS/CHIEF COMPLAINT: Colitis. HOSPITAL COURSE: 76-year-old female with CAD, hypertension, hyperlipidemia,hypothyroid diverticulosis, hemorrhoid presented to the hospital with the severe cramp abdominal pain and bloody diarrhea. She also reported change in bowel habits in the last 3 months with alternate episodes of constipation and diarrhea but never with blood before. She did notice blood in toilet paper after wiping before from her hemorroids but never pure blood and clots in the toilet bowl. CT scan in the emergency room showed Marked inflammatory changes involving descending colon compatible with colitis. Scattered diverticulosis of the colon. No evidence of acute diverticulitis. She was admitted for acute colitis and GIB. Acute colitis Infective vs inflammatory On ciprofloxacin and Flagyl. Rule out inflammatory bowel disease. IBD panel in progress Continue low residue diet Patient will need outpatient colonoscopy due to recent change in bowel habits and now with bloody diarrhea to evaluate for inflammatory bowel disease. GIB Bright red in color. likely lower GIB possibly due to Colitis + diverticular bleed. Patient has diverticulosis and hemorrhoids seen in colonoscopy [address] scan today along with colitis. H&H has been stable Hypertension Continue home med CAD status post stents Continue aspirin, statin Hypothyroid Continue Synthroid Hyperlipidemia Continue statin Lumbar spinal stenosis severe at the level of L4-L5 with bilateral foraminal stenosis This is seen in the CT scan. Small hiatal hernia Seen in the CT scan PPI DISCHARGE MEDICATIONS: Please see below. ALLERGIES: Please see below. PHYSICAL EXAMINATION ON DISCHARGE: VITAL SIGNS: Please see below. General Exam: Positive: Alert, Cooperative, No Acute Distress Eye Exam: Positive: PERRLA, Conjunctiva & lids normal, EOMI; Negative: Sclera icteric ENT Exam: Positive: Atraumatic, Mucous membr. moist/pink, Pharynx Normal Neck Exam: Positive: Supple; Negative: JVD, thyromegaly Chest Exam: Positive: Clear to auscultation, Normal air movement Heart Exam: Positive: Rate Normal, Regular Rhythm, Normal S1, Normal S2; Negative: Murmurs, Rubs Abdomen Exam: Positive: Hyperperistaltic bowel sounds, Soft, no tenderness Negative: Hepatosplenomegaly Extremity Exam: Negative: Clubbing, Cyanosis, Edema Skin Exam: Positive: Nl turgor and temperature; Negative: Breakdown, Lesion Neuro Exam: Positive: Normal Speech, Strength at 5/5 X4 ext, Normal Tone Psych Exam: Positive: Memory Intact, Oriented x 3 LABORATORY DATA: Please see below. IMAGING: CT abdomen and pelvis with IV contrast FINDINGS: Lungs: Bilateral dependent atelectasis. Heart: Atherosclerotic disease of the coronary arteries. Diaphragm: Small hiatal hernia. Liver: Normal. No mass. Gallbladder and bile ducts: Normal. No calcified stones. No ductal dilation. Pancreas: Normal. No ductal dilation. Spleen: Normal. No splenomegaly. Adrenal glands: Normal. No mass. Kidneys and ureters: Simple exophytic right renal cyst. Stomach and bowel: Marked inflammatory changes involving descending colon compatible with colitis. Scattered diverticulosis of the colon. No evidence of acute diverticulitis. Appendix: No evidence of appendicitis. Intraperitoneal space: Unremarkable. No free air. No significant fluid collection. Vasculature: Atherosclerotic disease of the thoracoabdominal aorta. Lymph nodes: Unremarkable. No enlarged lymph nodes. Urinary bladder: Unremarkable as visualized. Reproductive: Unremarkable as visualized. Bones/joints: Anterolisthesis of L4 on L5 secondary to bilateral L4 pars interarticularis defects. Severe stenosis of the spinal canal and neural foramina at this level. Multilevel degenerative disease. Mild levoscoliosis. Soft tissues: Unremarkable. IMPRESSION: Marked inflammatory changes involving descending colon compatible with colitis. ACTIVITY: [As tolerated]. DIET: Low residue DISCHARGE PLAN: Home DISPOSITION: . DISCHARGE INSTRUCTIONS: PMD in 1 week Needs referral to GI for colonoscopy ITEMS TO FOLLOWUP ON ON OUTPATIENT: Follow-up IBD panel DISCHARGE CONDITION: [Stable]. TIME SPENT ON DISCHARGE: 35 minutes. Vital Signs/I&Os Vital Signs Date Time Temp Pulse Resp B/P (MAP) Pulse Ox O2 Delivery O2 Flow Rate FiO2 10/09/21 06:00 99.0 56 18 131/62 (85) 96 Room Air I&O- Last 24 Hours up to 6 AM 10/09/21 06:00 Intake Total 1700 ml Output Total 400 ml Balance 1300 ml Laboratory Data Labs 24H Laboratory Tests 2 10/09/21 06:06: Immature Granulocyte % (Auto) 0.4, Neutrophils (%) (Auto) 60.0, Lymphocytes (%) (Auto) 24.8, Monocytes (%) (Auto) 9.2H, Eosinophils (%) (Auto) 5.2H, Basophils (%) (Auto) 0.4, Neutrophils # (Auto) 4.9, Lymphocytes # (Auto) 2.0, Monocytes # (Auto) 0.8, Eosinophils # (Auto) 0.4, Basophils # (Auto) 0.0, Nucleated Red Blood Cells % (auto) 0.0, Anion Gap 6L, Glomerular Filtration Rate > 60.0, Calcium Level 8.5L CBC/BMP Laboratory Tests 10/08/21 10:56 10/08/21 16:38 10/08/21 22:42 10/09/21 06:06 Discharge Medications Scheduled Alendronate Sodium (Fosamax) 70 Mg Tablet, 70 MG PO QWEEK, (Reported) takes sundays Aspirin (Ecotrin) 81 Mg Tablet.dr, 81 MG PO QHS, (Reported) Atorvastatin Calcium (Atorvastatin Calcium) 80 Mg Tab, 80 MG PO QHS, (Reported) Chlorthalidone (Chlorthalidone) 25 Mg Tablet, 12.5 MG PO DAILY, (Reported) Ciprofloxacin HCl (Cipro) 500 Mg Tablet, 1 TAB PO BID Lactobacillus Acidophilus (Acidophilus) 1 Each Tablet, 1 TAB PO BID Levothyroxine Sodium (Levothyroxine Sodium) 50 Mcg Tablet, 50 MCG PO QHS, (Reported) Lisinopril (Lisinopril) 40 Mg Tablet, 40 MG PO QHS, (Reported) Loratadine (Loratadine) 10 Mg Tablet, 10 MG PO DAILY, (Reported) Metronidazole (Metronidazole) 500 Mg Tablet, 1 TAB PO TID Allergies Coded Allergies: amoxicillin (Verified Allergy, Mild, HIVES, 10/07/21) Sulfa (Sulfonamide Antibiotics) (Verified Allergy, Unknown, 10/07/21) Nathaly Cho MD Oct 09, 2021 09:51
[2021-10-13 16:07] LABS: Chitobioside Carbohydrat (ACCA 13 units (0-90); Laminaribioside Carbohyd (ALCA 6 units (0-60); Mannobioside Carbohydrat (AMCA 13 units (0-100); Saccharomyces cerevisiae IgG A 13 units (0-50)
== END 2021-10-09 13:00 | disposition home or self-care (01) | DRG 378 ==
LOC: M ED 04:27 → M ED INP 08:53 → ENRESERV 13:16 → M MSPAV 13:48
PROVIDERS: ADMIT Internal Medicine Nephrology; ATTEND Internal Medicine Nephrology
DX: K57.31 Diverticulosis of large intestine without perforation or abscess with bleeding (principal); A09 Infectious gastroenteritis and colitis, unspecified; I25.10 Atherosclerotic heart disease of native coronary artery without angina pectoris; I10 Essential (primary) hypertension; E78.5 Hyperlipidemia, unspecified; E03.9 Hypothyroidism, unspecified; K44.9 Diaphragmatic hernia without obstruction or gangrene; K57.90 Diverticulosis of intestine, part unspecified, without perforation or abscess without bleeding; K64.9 Unspecified hemorrhoids; M48.061 Spinal stenosis, lumbar region without neurogenic claudication; Z79.82 Long term (current) use of aspirin; Z79.899 Other long term (current) drug therapy; Z88.0 Allergy status to penicillin; Z88.2 Allergy status to sulfonamides; Z20.822 Contact with and (suspected) exposure to COVID-19; Z95.5 Presence of coronary angioplasty implant and graft

== ENCOUNTER → 2021-12-27 | Outpatient (CLI) | payer MEDICARE ==
[~2021-12-27] MED LIST changes: +CALCTAB89 PO; +CHLO125TA PO; +CIPR-249 PO; +ECOT81TA5 PO; +LEVO50TA5 PO; -LISI20TA20 PO; +LISI20TA37 PO; +LISI40TA4 PO; +LORA10TA3 PO; +METR-265 PO; +PROB1TAB2 PO
== END ==
LOC: M LABSMTC 09:00
PROVIDERS: ATTEND Anesthesiology
DX: Z01.818 Encounter for other preprocedural examination (principal); Z11.52 Encounter for screening for COVID-19

== ENCOUNTER 2022-01-01 08:45 | Day surgery (SDC) | payer MEDICARE ==
[~2022-01-01] VITALS: Ht 157.5 cm; Wt 81.6 kg
[~2022-01-01 08:45] MED LIST changes: +NS 1,000 ML IV ONE
[2022-01-01] MEDS ORDERED: LIDOCAINE 2% 100MG/5ML SDV (FOR ANES.) As Ordered ONE (10:13)
[2022-01-01] MEDS ORDERED: propofoL 200 MG/20 ML VIAL As Ordered ONE (10:13)
[2022-01-01 10:34] VITALS: BP 185/93
== END 2022-01-01 10:36 | disposition home or self-care (01) ==
LOC: M OPP 08:45
PROVIDERS: ATTEND Surgery
DX: R10.84 Generalized abdominal pain (principal); K52.9 Noninfective gastroenteritis and colitis, unspecified; K57.30 Diverticulosis of large intestine without perforation or abscess without bleeding; I25.10 Atherosclerotic heart disease of native coronary artery without angina pectoris; I10 Essential (primary) hypertension; K21.9 Gastro-esophageal reflux disease without esophagitis; E78.5 Hyperlipidemia, unspecified; E03.9 Hypothyroidism, unspecified; M19.90 Unspecified osteoarthritis, unspecified site; M81.0 Age-related osteoporosis without current pathological fracture; Z87.891 Personal history of nicotine dependence; Z88.1 Allergy status to other antibiotic agents; Z88.2 Allergy status to sulfonamides; Z79.82 Long term (current) use of aspirin; Z79.899 Other long term (current) drug therapy; Z83.3 Family history of diabetes mellitus; Z82.49 Family history of ischemic heart disease and other diseases of the circulatory system

== ENCOUNTER → 2022-08-17 | Outpatient (REF) | payer MEDICARE ==
[~2022-08-17] MED LIST changes: +ALEN70TA87 PO; -FOSA70TA PO; -NS 1,000 ML IV ONE
== END ==
LOC: M LAB REF 11:58
PROVIDERS: ATTEND Registered Nurse
DX: N39.0 Urinary tract infection, site not specified (principal)

== ENCOUNTER → 2022-08-26 | Outpatient (CLI) | payer MEDICARE | LOC: M PLAIMG 13:48 | PROVIDERS: ATTEND Internal Medicine | DX: R05.9 Cough, unspecified (principal) ==

== ENCOUNTER → 2022-08-26 | Outpatient (REF) | payer MEDICARE ==
[2022-08-26 12:23] LABS: APPEARANCE, URINE MANUAL TURBID (CLEAR)
[2022-08-26 12:24] LABS: COLOR, URINE MANUAL LT YELLOW (YELLOW)
[2022-08-26 12:25] LABS: SPECIFIC GRAVITY,URINE MANUAL 1.005 (1.002-1.035)
[2022-08-26 12:26] LABS: PROTEIN, URINE MANUAL 2+ mg/dL (NEGATIVE)
[2022-08-26 12:27] LABS: BILIRUBIN, URINE MANUAL NEGATIVE (NEGATIVE); BLOOD URINE MANUAL POSITIVE (NEGATIVE); GLUCOSE, URINE (UA) MANUAL NEGATIVE (NEGATIVE); KETONE, URINE MANUAL NEGATIVE (NEGATIVE); LEUKOCYTE ESTERASE, URINE MAN POSITIVE (NEGATIVE); NITRITE, URINE MANUAL NEGATIVE (NEGATIVE); UROBILINOGEN, URINE MANUAL NORMAL (NORMAL)
[2022-08-26 12:38] LABS: WBC, URINE TNTC /hpf (0-3)
[2022-08-26 12:39] LABS: BACTERIA, URINE MOD AMOUNT; HYALINE CAST, URINE NONE SEEN /lpf (0-1); RBC, URINE 30-40 /hpf (0-3); SQUAMOUS EPITHELIAL CELL URINE MOD AMOUNT /hpf (SMALL AMT)
== END ==
LOC: M LAB REF 11:15
PROVIDERS: ATTEND Internal Medicine
DX: N39.0 Urinary tract infection, site not specified (principal)

== ENCOUNTER → 2022-09-11 | Outpatient (REF) | payer MEDICARE ==
[2022-09-11 19:35] LABS: APPEARANCE, URINE MANUAL CLEAR (CLEAR); COLOR, URINE MANUAL YELLOW (YELLOW)
[2022-09-11 19:36] LABS: BILIRUBIN, URINE MANUAL NEGATIVE (NEGATIVE); BLOOD URINE MANUAL NEGATIVE (NEGATIVE); GLUCOSE, URINE (UA) MANUAL NEGATIVE (NEGATIVE); KETONE, URINE MANUAL NEGATIVE (NEGATIVE); LEUKOCYTE ESTERASE, URINE MAN POSITIVE (NEGATIVE); NITRITE, URINE MANUAL NEGATIVE (NEGATIVE); PROTEIN, URINE MANUAL NEGATIVE (NEGATIVE); UROBILINOGEN, URINE MANUAL NORMAL (NORMAL)
[2022-09-11 20:03] LABS: BACTERIA, URINE SMALL AMOUNT; HYALINE CAST, URINE NONE SEEN /lpf (0-1); MUCUS, URINE SMALL AMOUNT (NEGATIVE); SQUAMOUS EPITHELIAL CELL URINE MOD AMOUNT /hpf (SMALL AMT)
== END ==
LOC: M SMT 16:52
PROVIDERS: ATTEND Physician Assistant
DX: N39.0 Urinary tract infection, site not specified (principal)

== ENCOUNTER → 2022-09-18 | Outpatient (CLI) | payer MEDICARE | LOC: M RAD 12:16 | PROVIDERS: ATTEND Internal Medicine | DX: N39.0 Urinary tract infection, site not specified (principal) ==

== ENCOUNTER → 2022-11-24 | Outpatient (REF) | payer MEDICARE ==
[2022-11-24 17:08] LABS: APPEARANCE, URINE HAZY (CLEAR); BILIRUBIN, URINE AUTO NEGATIVE (NEGATIVE); BLOOD, URINE BLOOD NEGATIVE (NEGATIVE); COLOR, URINE YELLOW (YELLOW); GLUCOSE, URINE (UA) AUTO NEGATIVE (NEGATIVE); KETONE, URINE AUTO NEGATIVE (NEGATIVE); LEUKOCYTE ESTERASE, URINE AUTO 2+ (NEGATIVE); NITRITE, URINE AUTO NEGATIVE (NEGATIVE); PROTEIN, URINE AUTO NEGATIVE (NEGATIVE); SPECIFIC GRAVITY URINE AUTO 1.015 (1.002-1.035)
[2022-11-24 17:12] LABS: BACTERIA, URINE AUTO 1+ (NEGATIVE); RBC, URINE AUTO 2 /HPF (0-3); SQUAMOUS EPITHELIAL CELL UR AU 1 /HPF (0-6); TRANSITIONAL EPITHELIAL AUTO 1 /HPF; WBC, URINE AUTO 8 /HPF (0-3)
== END ==
LOC: M SMT 16:45
PROVIDERS: ATTEND Physician Assistant
DX: R30.0 Dysuria (principal)

== ENCOUNTER → 2023-01-04 | Outpatient (REF) | payer MEDICARE ==
[2023-01-04 17:33] LABS: APPEARANCE, URINE HAZY (CLEAR); BACTERIA, URINE AUTO 1+ (NEGATIVE); BILIRUBIN, URINE AUTO NEGATIVE (NEGATIVE); BLOOD, URINE BLOOD NEGATIVE (NEGATIVE); COLOR, URINE YELLOW (YELLOW); GLUCOSE, URINE (UA) AUTO NEGATIVE (NEGATIVE); KETONE, URINE AUTO NEGATIVE (NEGATIVE); LEUKOCYTE ESTERASE, URINE AUTO 1+ (NEGATIVE); MUCUS, URINE SMALL (NEGATIVE); NITRITE, URINE AUTO POSITIVE (NEGATIVE); PROTEIN, URINE AUTO NEGATIVE (NEGATIVE); RBC, URINE AUTO 0 /HPF (0-3); SPECIFIC GRAVITY URINE AUTO 1.014 (1.002-1.035); SQUAMOUS EPITHELIAL CELL UR AU 0 /HPF (0-6); UROBILINOGEN, URINE AUTO 0.2 mg/dL (0.0-2.0); WBC, URINE AUTO 22 /HPF (0-3)
== END ==
LOC: M SMT 16:36
PROVIDERS: ATTEND Physician Assistant
DX: N39.0 Urinary tract infection, site not specified (principal)

== ENCOUNTER → 2023-05-25 | Outpatient (REF) | payer MEDICARE ==
[2023-05-25 18:45] LABS: APPEARANCE, URINE HAZY (CLEAR); BACTERIA, URINE AUTO 1+ (NEGATIVE); BILIRUBIN, URINE AUTO NEGATIVE (NEGATIVE); BLOOD, URINE BLOOD NEGATIVE (NEGATIVE); COLOR, URINE YELLOW (YELLOW); GLUCOSE, URINE (UA) AUTO NEGATIVE (NEGATIVE); KETONE, URINE AUTO NEGATIVE (NEGATIVE); LEUKOCYTE ESTERASE, URINE AUTO 3+ (NEGATIVE); NITRITE, URINE AUTO NEGATIVE (NEGATIVE); PROTEIN, URINE AUTO NEGATIVE (NEGATIVE); RBC, URINE AUTO 2 /HPF (0-3); SPECIFIC GRAVITY URINE AUTO 1.012 (1.002-1.035); SQUAMOUS EPITHELIAL CELL UR AU 1 /HPF (0-6); UROBILINOGEN, URINE AUTO 0.2 mg/dL (0.0-2.0); WBC, URINE AUTO 26 /HPF (0-3)
== END ==
LOC: M SMT 16:56
PROVIDERS: ATTEND Physician Assistant
DX: R30.0 Dysuria (principal)

== ENCOUNTER → 2023-07-14 | Outpatient (REF) | payer MEDICARE ==
[2023-07-14 18:01] LABS: APPEARANCE, URINE HAZY (CLEAR); BACTERIA, URINE AUTO 1+ (NEGATIVE); BILIRUBIN, URINE AUTO NEGATIVE (NEGATIVE); BLOOD, URINE BLOOD NEGATIVE (NEGATIVE); COLOR, URINE YELLOW (YELLOW); GLUCOSE, URINE (UA) AUTO NEGATIVE (NEGATIVE); KETONE, URINE AUTO NEGATIVE (NEGATIVE); LEUKOCYTE ESTERASE, URINE AUTO 3+ (NEGATIVE); NITRITE, URINE AUTO POSITIVE (NEGATIVE); PROTEIN, URINE AUTO NEGATIVE (NEGATIVE); RBC, URINE AUTO 2 /HPF (0-3); SPECIFIC GRAVITY URINE AUTO 1.017 (1.002-1.035); SQUAMOUS EPITHELIAL CELL UR AU 1 /HPF (0-6); WBC, URINE AUTO 117 /HPF (0-3)
== END ==
LOC: M SMT 16:44
PROVIDERS: ATTEND Physician Assistant
DX: N39.0 Urinary tract infection, site not specified (principal)

== ENCOUNTER 2024-03-29 06:05 | Emergency (ER) | payer MEDICARE ==
[~2024-03-29] VITALS: Ht 157.5 cm; Wt 91.6 kg
[2024-03-29 06:38] LABS: BASO # 0.1 10^3/uL (0.0-0.2); BASO % 0.8 % (0.0-1.0); EOS # 0.2 10^3/uL (0.0-0.5); EOS % 2.2 % (0.0-3.0); HEMATOCRIT 40.3 % (36.0-47.0); HEMOGLOBIN 13.5 g/dl (12.0-15.5); LYMPH # 1.8 10^3/uL (1.5-5.0); LYMPH % 24.5 % (24.0-44.0); MEAN CORPUSCULAR HEMOGLOBIN 31.3 pg (27.0-33.0); MEAN CORPUSCULAR HGB CONC 33.5 g/dl (32.0-36.5); MEAN CORPUSCULAR VOLUME 93.3 fl (80.0-96.0); MONO # 0.7 10^3/uL (0.0-0.8); MONO % 10.2 % (2.0-8.0); NEUTROPHILS # 4.4 10^3/uL (1.5-8.5); PLATELET COUNT, AUTOMATED 246 10^3/uL (150-450); RED BLOOD COUNT 4.32 10^6/uL (4.00-5.40); WHITE BLOOD COUNT 7.2 10^3/uL (4.0-10.0)
[2024-03-29 06:57] LABS: CK-MB VALUE MASS < 1.0 NG/ML (<3.6)
[2024-03-29 07:00] LABS: ALBUMIN 3.6 G/DL (3.2-5.2); ALKALINE PHOSPHATASE 70 U/L (46-116); ALT/SGPT 22 U/L (7.0-40); AST/SGOT 16 U/L (<34); BILIRUBIN,DIRECT 0.2 MG/DL (<0.4); BILIRUBIN,TOTAL 0.6 MG/DL (0.3-1.2); BLOOD UREA NITROGEN 21 MG/DL (9-23); CALCIUM LEVEL 9.4 MG/DL (8.3-10.6); CARBON DIOXIDE LEVEL 27 MMOL/L (20-31); CHLORIDE LEVEL 108 MMOL/L (98-107); CPK CREATINE PHOSPHOKINASE 78 U/L (34-145); CREATININE FOR GFR 0.97 MG/DL (0.55-1.30); GLOMERULAR FILTRATION RATE 59.1 (>39); GLUCOSE, FASTING 139 MG/DL (74-106); MB/CK RELATIVE INDEX 1.28 (< OR =4); POTASSIUM SERUM 4.2 MMOL/L (3.5-5.1); SODIUM LEVEL 140 MMOL/L (136-145); TOTAL PROTEIN 6.5 G/DL (5.7-8.2)
[2024-03-29 07:05] LABS: INR 0.91
[2024-03-29] MEDS ORDERED: ISOVUE-370 76% 100ML VIAL As Ordered ONE (07:41)
[2024-03-29] MEDS: ASPIRIN 81MG CHEW TABLET PO ONE (07:41)
[2024-03-29] MEDS: NITROGLYCERIN 0.4MG SUBL TABLET SL PRN (07:42)
[2024-03-29 08:00] LABS: CK-MB VALUE MASS < 1.0 NG/ML (<3.6)
[2024-03-29 08:02] LABS: CPK CREATINE PHOSPHOKINASE 70 U/L (34-145); MB/CK RELATIVE INDEX 1.42 (< OR =4)
[2024-03-29] MEDS ORDERED: HOME MED LIST COMPLETE! XX SCH (10:05)
[2024-03-29] MEDS ORDERED: METO1TAB87 PO (10:05)
[2024-03-29] MEDS ORDERED: EZET10TA21 PO (10:05)
[2024-03-29] MEDS ORDERED: TELM1TAB35 PO (10:05)
[2024-03-29] MEDS ORDERED: PILL CUTTER 1 EACH XX ONE (11:34)
[2024-03-29 11:37] VITALS: BP 169/73
[2024-03-29] MEDS: METOPROLOL TART 25 MG TABLET PO ONE (11:37)
[2024-03-29] MEDS: CHLORTHALIDONE 12.5MG PER 1/2 TABLET PO ONE (11:43)
[2024-03-29 13:45] VITALS: BP 166/77; TEMP 97.2; O2SAT 97
[2024-03-30] MEDS ORDERED: TELMISARTAN 20 MG TAB PO SCH (09:00)
== END 2024-03-29 14:15 | disposition short-term general hospital (02) ==
LOC: M ED 06:05
DX: I24.9 Acute ischemic heart disease, unspecified (principal); E11.9 Type 2 diabetes mellitus without complications; I10 Essential (primary) hypertension; E78.5 Hyperlipidemia, unspecified; Z87.891 Personal history of nicotine dependence; Z88.1 Allergy status to other antibiotic agents; Z88.2 Allergy status to sulfonamides; Z79.1 Long term (current) use of non-steroidal anti-inflammatories (NSAID); Z79.899 Other long term (current) drug therapy; Z79.84 Long term (current) use of oral hypoglycemic drugs
CPT/HCPCS: 36415; 71275; 80053; 82248; 82550; 82553; 84484; 85025; 85610; 93005; 99285; Q9967

== ENCOUNTER → 2024-05-01 | Outpatient (REF) | payer MEDICARE ==
[~2024-05-01] MED LIST changes: +EZET10TA21 PO; +METO1TAB87 PO; +TELM1TAB35 PO
[2024-05-01 18:53] LABS: APPEARANCE, URINE HAZY (CLEAR); BACTERIA, URINE AUTO 3+ (NEGATIVE); BILIRUBIN, URINE AUTO NEGATIVE (NEGATIVE); BLOOD, URINE BLOOD NEGATIVE (NEGATIVE); COLOR, URINE YELLOW (YELLOW); GLUCOSE, URINE (UA) AUTO NEGATIVE (NEGATIVE); KETONE, URINE AUTO NEGATIVE (NEGATIVE); LEUKOCYTE ESTERASE, URINE AUTO 3+ (NEGATIVE); MUCUS, URINE SMALL (NEGATIVE); NITRITE, URINE AUTO NEGATIVE (NEGATIVE); PROTEIN, URINE AUTO NEGATIVE (NEGATIVE); RBC, URINE AUTO 1 /HPF (0-3); SPECIFIC GRAVITY URINE AUTO 1.008 (1.002-1.035); SQUAMOUS EPITHELIAL CELL UR AU 1 /HPF (0-6); UROBILINOGEN, URINE AUTO 0.2 mg/dL (0.0-2.0); WBC, URINE AUTO 63 /HPF (0-3)
== END ==
LOC: M SMT 17:04
PROVIDERS: ATTEND Physician Assistant
DX: R30.0 Dysuria (principal)

== ENCOUNTER → 2025-05-17 | Outpatient (REF) | payer MEDICARE ==
[~2025-05-17] MED LIST changes: +LISI40TA10 PO; -LISI40TA4 PO
[2025-05-17 16:50] LABS: APPEARANCE, URINE CLOUDY (CLEAR); BACTERIA, URINE AUTO NEGATIVE (NEGATIVE); BILIRUBIN, URINE AUTO NEGATIVE (NEGATIVE); BLOOD, URINE BLOOD NEGATIVE (NEGATIVE); GLUCOSE, URINE (UA) AUTO NEGATIVE (NEGATIVE); KETONE, URINE AUTO NEGATIVE (NEGATIVE); LEUKOCYTE ESTERASE, URINE AUTO 3+ (NEGATIVE); MUCUS, URINE SMALL (NEGATIVE); NITRITE, URINE AUTO POSITIVE (NEGATIVE); PROTEIN, URINE AUTO NEGATIVE (NEGATIVE); RBC, URINE AUTO 2 /HPF (0-3); SPECIFIC GRAVITY URINE AUTO 1.014 (1.002-1.035); SQUAMOUS EPITHELIAL CELL UR AU 3 /HPF (0-6); UROBILINOGEN, URINE AUTO 0.2 mg/dL (0.0-2.0); WBC, URINE AUTO TNTC /HPF (0-3)
== END ==
LOC: M SMT 15:07
PROVIDERS: ATTEND Physician Assistant
DX: R39.9 Unspecified symptoms and signs involving the genitourinary system (principal)

== ENCOUNTER → 2025-07-03 | Outpatient (REF) | payer MEDICARE ==
[~2025-07-03] MED LIST changes: -EZET10TA21 PO; +EZET10TA57 PO
[2025-07-03 18:46] LABS: APPEARANCE, URINE HAZY (CLEAR); BACTERIA, URINE AUTO NEGATIVE (NEGATIVE); BILIRUBIN, URINE AUTO NEGATIVE (NEGATIVE); BLOOD, URINE BLOOD NEGATIVE (NEGATIVE); GLUCOSE, URINE (UA) AUTO NEGATIVE (NEGATIVE); KETONE, URINE AUTO NEGATIVE (NEGATIVE); LEUKOCYTE ESTERASE, URINE AUTO 2+ (NEGATIVE); NITRITE, URINE AUTO NEGATIVE (NEGATIVE); PROTEIN, URINE AUTO NEGATIVE (NEGATIVE); RBC, URINE AUTO 1 /HPF (0-3); SPECIFIC GRAVITY URINE AUTO 1.023 (1.002-1.035); SQUAMOUS EPITHELIAL CELL UR AU 6 /HPF (0-6); TRANSITIONAL EPITHELIAL AUTO 1 /HPF; UROBILINOGEN, URINE AUTO 4.0 mg/dL (0.0-2.0); WBC, URINE AUTO 9 /HPF (0-3)
== END ==
LOC: M SMT 17:48
PROVIDERS: ATTEND Physician Assistant
DX: N39.0 Urinary tract infection, site not specified (principal)